=== PATIENT | male | born 1995 | race Caucasian/White ===

== ENCOUNTER 2021-09-22 11:56 | Emergency (ER) | payer SELFPAY ==
[~2021-09-22] VITALS: Ht 180.3 cm; Wt 104.3 kg
[2021-09-22 13:24] LABS: BILIRUBIN NEGATIVE (NEGATIVE); BLOOD NEGATIVE Ery/uL (NEGATIVE); CLARITY CLEAR (CLEAR); COLOR YELLOW (YELLOW); GLUCOSE (U) NORMAL (NORMAL); LEUKOCYTES NEGATIVE Leu/uL (NEGATIVE); NITRITE NEGATIVE (NEGATIVE); PROTEIN NEGATIVE (NEGATIVE); SPECIFIC GRAVITY 1.015 (1.001-1.030); UROBILINOGEN 0.2 mg/dL (0.2-1.0); pH 7.5 (5.0-9.0)
[2021-09-22 13:28] LABS: BASOPHIL 0.2 % (0-2); EOSINOPHIL 1.2 % (0-5); HCT 44.6 % (42.0-52.0); HGB 15.9 g/dl (13.2-18.0); MCH 31.5 pg (25.0-31.0); MCHC 35.7 g/dL (32.0-36.0); MCV 88.3 fL (78.0-100.0); MONOCYTE 5.6 % (0-12); MPV 9.7 fL (6.0-9.5); NEUTROPHIL 89.8 % (41-80); NRBC 0; PLT 191 K/uL (150-400); RBC 5.05 M/uL (4.70-6.00); RDW 12.4 % (11.5-14.0)
[2021-09-22 13:41] LABS: ALBUMIN 4.5 g/dL (3.4-5.0); BILIRUBIN - TOTAL 0.6 mg/dL (0.2-1.0); BUN/CREAT RATIO (CALC) 18.7 RATIO; CREATININE 0.91 mg/dL (0.67-1.17); GLOBULIN (CALCULATION) 3.7 g/dL; TOTAL PROTEIN 8.2 g/dL (6.4-8.2)
[2021-09-22] MEDS ORDERED: ONDANSETRON ODT4 MG PO (14:30)
== END 2021-09-22 14:42 | disposition home or self-care (01) ==
LOC: FER 11:56
PROVIDERS: Nurse Practitioner Family
DX: R10.30 Lower abdominal pain, unspecified (principal); R11.0 Nausea; Z28.310 Unvaccinated for COVID-19
CPT/HCPCS: 36415; 80053; 81003; 85025; J2405; J7030

== ENCOUNTER 2021-10-10 10:42 | Emergency (ER) | payer OTHER ==
[~2021-10-10 10:42] MED LIST: ONDANSETRON ODT4 MG PO
[2021-10-10 12:01] LABS: BASOPHIL 0.3 % (0-2); EOSINOPHIL 3.9 % (0-5); HCT 45.5 % (42.0-52.0); LYMPHOCYTE 28.1 % (15-48); MCH 30.9 pg (25.0-31.0); MCHC 35.2 g/dL (32.0-36.0); MONOCYTE 9.2 % (0-12); MPV 9.9 fL (6.0-9.5); NEUTROPHIL 58.3 % (41-80); NRBC 0; PLT 214 K/uL (150-400); RBC 5.17 M/uL (4.70-6.00); RDW 12.2 % (11.5-14.0); WBC 5.9 K/uL (4.0-10.5)
[2021-10-10 12:33] LABS: ALBUMIN 4.2 g/dL (3.4-5.0); BILIRUBIN - TOTAL 0.4 mg/dL (0.2-1.0); BUN/CREAT RATIO (CALC) 16.9 RATIO; CREATININE 0.83 mg/dL (0.67-1.17); GLOBULIN (CALCULATION) 3.7 g/dL; POTASSIUM 4.2 mmol/L (3.5-5.1); TOTAL PROTEIN 7.9 g/dL (6.4-8.2)
[2021-10-10 13:51] LABS: INFLUENZA A NAA NEGATIVE (NEGATIVE)
[2021-10-10 14:03] LABS: CORONAVIRUS 2019 SARS-COV-2 POSITIVE (NEGATIVE)
== END 2021-10-10 14:40 | disposition home or self-care (01) ==
LOC: FER 10:42
PROVIDERS: Emergency Medicine; Nurse Practitioner Family
DX: U07.1 COVID-19 (principal); Z28.310 Unvaccinated for COVID-19
CPT/HCPCS: 36415; 71045; 80053; 84145; 84484; 85025; 85379; 93005; U0002

== ENCOUNTER 2021-12-08 03:25 | Emergency (ER) | payer OTHER | END 2021-12-08 05:08 | disposition home or self-care (01) | LOC: FER 03:25 | DX: R07.89 Other chest pain (principal); E03.9 Hypothyroidism, unspecified; Z79.890 Hormone replacement therapy | CPT/HCPCS: 36415; 84484; 93005 ==